=== PATIENT | female | born 2000 | race Caucasian/White ===

== ENCOUNTER 2021-02-19 14:33 | Emergency (ER) | payer OTHER | END 2021-02-19 17:26 | disposition home or self-care (01) | LOC: FER 14:33 | DX: S61.412A Laceration without foreign body of left hand, initial encounter (principal); Z23 Encounter for immunization; W25.XXXA Contact with sharp glass, initial encounter; Y92.89 Other specified places as the place of occurrence of the external cause; Y99.0 Civilian activity done for income or pay | CPT/HCPCS: 73120; 90471; 90715 ==

== ENCOUNTER 2021-05-16 10:36 | Emergency (ER) | payer OTHER ==
[2021-05-16] MEDS ORDERED: NAPROXEN500 MG PO (12:27)
[2021-05-16] MEDS ORDERED: ATARAX25 MG PO (12:27)
== END 2021-05-16 12:45 | disposition home or self-care (01) ==
LOC: FER 10:36
DX: T75.4XXA Electrocution, initial encounter (principal); R51.9 Headache, unspecified; M54.2 Cervicalgia; F41.9 Anxiety disorder, unspecified; W86.8XXA Exposure to other electric current, initial encounter; Y92.89 Other specified places as the place of occurrence of the external cause; Y99.0 Civilian activity done for income or pay
CPT/HCPCS: 99283